=== PATIENT | female | born 1945 | race Caucasian/White ===

== ENCOUNTER → 2024-10-27 | Outpatient (CLI) | payer MEDICARE, BC, SELFPAY ==
--- NOTE | 2024-10-27 08:26 | EKG_ITS ---
[facility] Test Date: 2024-10-27 Pat Name: YELITZA MENDOSA Department: Room: - Gender: Female Vehicle Window Tinter: KIM : 1945 Requested By: Dusty Bates Order Number: [id number] Reading MD: Dusty Bates Measurements Intervals [place] Rate: 66 P: 53 [place]: 282 QRS: -1 QRSD: 121 T: 76 QT: 408 QTc: 429 Interpretive Statements SINUS RHYTHM WITH FIRST DEGREE AV BLOCK POSSIBLE ANTERIOR MYOCARDIAL INFARCTION , OF INDETERMINATE AGE [30 ms Q WAVE IN V3/V4, OR R < 0.2 mV IN V4] No previous ECG available for comparison /[id number]
== END | disposition home or self-care (01) ==
LOC: SEKG 08:03
PROVIDERS: Referring Provider Ophthalmology; Visit Provider Ophthalmology
DX: Z01.818 Encounter for other preprocedural examination (principal); H25.811 Combined forms of age-related cataract, right eye
CPT/HCPCS: 93005